=== PATIENT | female | born 1935 | race Caucasian/White ===

== ENCOUNTER 2021-10-05 10:20 | Emergency (ER) | payer OTHER ==
[~2021-10-05 10:20] MED LIST: AEROCHAMBER1 EA XX; VENTOLIN HFA 66.7 GM INH
[2021-10-05 12:16] LABS: HEMOGLOBIN 12.4 gm/dl (12.3-15.3); RED BLOOD COUNT 4.5 M/UL (4.00-5.10); WHITE BLOOD COUNT 6.6 K/UL (4.5-11.0)
[2021-10-05] MEDS ORDERED: ZOFRAN ODT 4 MG4 MG GT (12:49)
== END 2021-10-05 13:07 | disposition home or self-care (01) ==
LOC: ER1 10:20
PROVIDERS: Physician Assistant
DX: S05.12XA Contusion of eyeball and orbital tissues, left eye, initial encounter (principal); S05.11XA Contusion of eyeball and orbital tissues, right eye, initial encounter; S00.83XA Contusion of other part of head, initial encounter; J44.9 Chronic obstructive pulmonary disease, unspecified; F17.210 Nicotine dependence, cigarettes, uncomplicated; Z88.0 Allergy status to penicillin; W01.0XXA Fall on same level from slipping, tripping and stumbling without subsequent striking against object, initial encounter; Y92.009 Unspecified place in unspecified non-institutional (private) residence as the place of occurrence of the external cause
CPT/HCPCS: 70450; 70486; 71045; 72125; 73502; 80053; 83690; 85025; 99284